=== PATIENT | female | born 1980 | race Caucasian/White ===

== ENCOUNTER 2016-11-13 05:55 | Inpatient (IN) | payer BC ==
[~2016-11-13] VITALS: Ht 160 cm; Wt 89.4 kg
[2016-11-13] VITALS (55 sets, daily range): BP systolic 108–144; BP diastolic 53–114; PULSE 65–127; RESP 0–18; TEMP 97.6–99.3
[~2016-11-13 05:55] MED LIST: ENOX40P SQ; LORT5TAB PO; Z.0.BCPILL PO
[2016-11-13] MEDS ORDERED: OXYTOCIN 30 UNITS/NS 500ML PREMIX IV SCH (06:45)
[2016-11-13] MEDS ORDERED: PREN29TA PO (06:56)
[2016-11-13] MEDS ORDERED: GLYB2.5T3 PO (06:56)
[2016-11-13] MEDS ORDERED: OXYTOCIN 30 UNITS 500ML PREMIX IV ONE (07:00)
[2016-11-13] MEDS ORDERED: CITRIC ACID-SODIUM CITRATE LIQ 30 ML UDC PO SCH (07:00)
[2016-11-13] MEDS ORDERED: LIDOCAINE HCL 1% 50 ML VIAL I-DERMAL PRN (07:00)
[2016-11-13] MEDS ORDERED: NS 1000 ML IV PRN (07:00)
[2016-11-13] MEDS ORDERED: ONDANSETRON HCL 4 MG/2 ML VIAL IV PRN (07:00)
[2016-11-13] MEDS ORDERED: LACTATED RINGER'S 1000 ML BOLUS IV PRN (07:00)
[2016-11-13] MEDS ORDERED: MINERAL OIL 10 ML VIAL TOPICAL PRN (07:00)
[2016-11-13] MEDS ORDERED: NS 500 ML BOLUS IV PRN (07:00)
[2016-11-13] MEDS ORDERED: LACTATED RINGER'S 1000 ML IV SCH (07:00)
[2016-11-13] MEDS ORDERED: LIDOCAINE HCL 1% 50 ML VIAL INFIL PRN (07:00)
[2016-11-13 07:18] LABS: AUTOMATED NEUTROPHIL # 6.6 TH/MM3 (1.8-7.7); BASOPHIL % 0.4 % (0.0-2.0); EOSINOPHIL # 0.1 TH/MM3 (0-0.4); EOSINOPHIL % 1.1 % (0.0-4.0); HEMATOCRIT 29.7 % (35.0-46.0); HEMO FLAGS DIFF FINAL; LYMPH % 16.2 % (9.0-44.0); LYMPHOCYTE # 1.5 TH/MM3 (1.0-4.8); MEAN CELL VOLUME 86.7 FL (80.0-100.0); MEAN CORPUSCULAR HEMOGLOBIN 30.3 PG (27.0-34.0); MEAN CORPUSCULAR HGB CONC 34.9 % (32.0-36.0); MONO % 9.2 % (0.0-8.0); NEUT % 73.1 % (16.0-70.0); PLATELET COUNT 297 TH/MM3 (150-450); RED BLOOD COUNT 3.42 MIL/MM3 (4.00-5.30); RED CELL DISTRIBUTION WIDTH 14.5 % (11.6-17.2)
[2016-11-13 07:43] LABS: BACTERIA, URINE RARE /hpf; BLOOD, URINE SMALL (NEG); CALCIUM OXALATE CRYSTALS,URINE FEW /hpf; GLUCOSE,URINE 300 mg/dL (NEG); HYALINE CAST, URINE 1 /lpf (RARE); KETONE, URINE NEG (NEG); MUCUS URINE FEW /lpf (OCC); NITRITE,URINE NEG (NEG); SQUAMOUS EPITHELIAL CELL URINE 1 /hpf (0-5); TRANSITIONAL EPI CELLS, URINE <1 /hpf; URINE COLOR YELLOW (YELLW/STRAW)
[2016-11-13 07:47] LABS: COMMENT (UR) CULT NOT INDICATED; CULTURE IF INDICATED CULT NOT INDICATED
--- NOTE | 2016-11-13 08:25 | PD.LABORPN ---
Subjective Subjective +FM, no LOF Objective Vital Signs Vital Signs Date Time Temp Pulse Resp B/P Pulse Ox O2 Delivery O2 Flow Rate FiO2 11/13/16 07:45 98.3 11/13/16 07:30 92 144/83 11/13/16 07:29 99.3 11/13/16 06:24 92 144/79 11/13/16 06:21 98.0 18 Objective Pelvic Exam: Cervix: [-] Dilatation: [-] 2 Effacement: [-] 50 Station: [-] -3 Presentation: [-] vtx Membranes: [intact or ruptured] arom attempted, unsuccessful, presentation high Uterine Contractions: [-] FHT's: Category: [-] 1 Baseline: [-] 160-170s but good BTBV Reactive: [-] Variability: [-] Decels: [-] no Assessment/Plan Problem List: (1) state, incidental (2) Gestational diabetes mellitus Assessment and Plan IUP at term GDM, well controlled start pit analgesia prn anticipate Meggan Holguin MD Nov 13, 2016 08:25
[2016-11-13] MEDS ORDERED: OXYTOCIN 30 UNITS-500ML PREMIX 500 ML IV SCH (08:30)
--- NOTE | 2016-11-13 10:03 | MH ---
cc: BARBI LEVY MD DATE OF ADMISSION: 11/13/2016 HISTORY OF PRESENT ILLNESS She is being admitted on 11/13/2016. She is [id number], 3, para 2, intrauterine at 39-3/7 weeks, history of precipitous delivery, gestational diabetes class A2, advanced maternal age, history of preeclampsia in 2002. care has been with [facility]. The patient has been controlled with glyburide 2.5 mg b.i.d. Group-B strep is negative. PAST OB HISTORY She had two vaginal deliveries. PAST [facility] HISTORY Unremarkable. Pap smear was normal in July 2015. PAST MEDICAL HISTORY She has had a kidney stone. PAST SURGICAL HISTORY She has had left leg and left knee surgery. SOCIAL HISTORY She denies toxic habits. MEDICATIONS 1. vitamins. 2. Glyburide 2.5 mg b.i.d. ALLERGIES She has no known drug allergies. PHYSICAL EXAMINATION VITAL SIGNS: Her vital signs are stable. Her blood pressure is 124/68. She is 200 pounds. HEAD, HEART, CHEST, LUNGS: Within normal limits. ABDOMEN: Soft, nontender, gravid. Vertex presentation. PELVIC: She is 2 cm dilated, 50% effaced, -1 station. ASSESSMENT AND PLAN She is [id number], 3, para 2, intrauterine at 39-3/7 weeks. History of precipitous delivery. Gestational diabetes controlled with glyburide. History of preeclampsia in 2002. Advanced maternal age. She has been counseled as to the risks, benefits and alternatives of artificial rupture of membranes followed by Pitocin augmentation. All of her questions have been answered. MD CARLOS Hill/DALE /10:41 AM /10:02 AM
[2016-11-13] MEDS ORDERED: fentaNYL 2MCG-BUPIV 0.125% INJ 100 ML ONE (13:27)
[2016-11-13] MEDS ORDERED: ePHEDrine/NS 25 MG/5 ML SYR IV PRN (14:45)
[2016-11-13] MEDS ORDERED: fentaNYL 2MCG-BUPIV 0.125% 100 ML EPIDURAL SCH (14:45)
[2016-11-13] MEDS ORDERED: NO SYSTEM NARCOTICS PRN (14:45)
[2016-11-13] MEDS ORDERED: DO NOT ADMINISTER ANTICOAGULANTS PRN (14:45)
--- NOTE | 2016-11-13 17:50 | PD.OB.DELI ---
Anesthesia: Epidural Episiotomy: Midline Vaginal Delivery: Vacuum Presentation: Occiput posterior Nuchal Cord: x1 : Female One Minute : 7 Five Minute : 9 Weight: 7-12 Placenta: Spontaneous delivery Laceration: 3 deg Repair: Chromic interrupted, Vicryl Meggan Aragon MD Nov 13, 2016 17:50
[2016-11-13] MEDS ORDERED: ZOLPIDEM TARTRATE 5 MG TAB PO PRN (18:00)
[2016-11-13] MEDS ORDERED: MEASLES, MUMPS, RUBELLA VACCINE 0.5 ML VIAL SQ ONE (18:00)
[2016-11-13] MEDS ORDERED: ALUMINUM/MAGNESIUM/SIMETH 30 ML CUP PO PRN (18:00)
[2016-11-13] MEDS ORDERED: DIPHTH/TETANUS/ACEL PERTUSSIS (BOOSTER) 0.5 ML VIAL/PFS IM ONE (18:00)
[2016-11-13] MEDS ORDERED: ACETAMINOPHEN 325 MG TAB PO PRN (18:00)
[2016-11-13] MEDS ORDERED: WITCH HAZEL 50%/GLYCERIN 12.5% 40 PAD JAR TOPICAL PRN (18:00)
[2016-11-13] MEDS ORDERED: BENZOCAINE 20% TOPICAL SPRAY 60 ML CAN TOPICAL PRN (18:00)
[2016-11-13] MEDS ORDERED: ONDANSETRON ODT 4 MG TAB PO PRN (18:00)
[2016-11-13] MEDS ORDERED: SODIUM CHLORIDE 0.9% FLUSH 10 ML FLUSH IV FLUSH PRN (18:00)
[2016-11-13] MEDS ORDERED: OXYTOCIN 30 UNITS-500ML PREMIX 500 ML IV ONE (18:00)
[2016-11-13] MEDS ORDERED: SODIUM CHLORIDE 0.9% FLUSH 10 ML FLUSH IV FLUSH SCH (21:00)
[2016-11-14] MEDS: IBUPROFEN 600 MG TAB PO PRN ×3 (00:09→13:18)
[2016-11-14 07:30] VITALS: BP 114/82; PULSE 86; RESP 16; TEMP 97.7
[2016-11-14] MEDS ORDERED: IBUP-232 PO (08:03)
[2016-11-14] MEDS ORDERED: SENN1TAB PO (08:03)
--- NOTE | 2016-11-14 08:03 | HHI.DCPOC ---
Discharge Care Plan Diagnosis: (1) (spontaneous vaginal delivery) Your Health Problems Are: Incisions/drains Vaginal delivery Report Symptoms to Your Doctor -Temperate above 100.5 degrees -Redness, of incision or excessive or foul smelling drainage -Unusual pain or calf pain -Increased vaginal bleeding -Painful or difficulty urinating -Feelings of extreme sadness or anxiety after 2 weeks Goals to Promote Your Health * To prevent worsening of your condition and complications * To maintain your health at the optimal level Directions to Meet Your Goals Take your medications as prescribed Follow your dietary instruction Follow activity as directed Ensure plenty of rest for recovery Drink fluids for hydration Keep your appointments as scheduled Take your immunizations and boosters as scheduled If your symptoms worsen call your PCP, if no PCP go to Urgent Care Center or Emergency Room Smoking is Dangerous to Your Health. Avoid second hand smoke Call the 24-hour crisis hotline for domestic abuse at Nilsa Brunner MD Nov 14, 2016 08:03
--- NOTE | 2016-11-14 08:05 | HHI.OB ---
Subjective Post Day: 1 Remarks vavd with 3 degree laceration Doing well pain garsia. is only taking ibuprofen Objective Vitals/I&O Vital Signs Date Time Temp Pulse Resp B/P Pulse Ox O2 Delivery O2 Flow Rate FiO2 11/13/16 20:43 98.2 77 16 142/81 11/13/16 19:47 99.2 11/13/16 19:47 77 16 142/81 11/13/16 18:31 84 109/58 11/13/16 18:25 18 11/13/16 18:25 98.5 11/13/16 18:15 94 127/75 11/13/16 18:06 0 11/13/16 18:00 99 135/82 11/13/16 17:01 109 11/13/16 16:46 91 11/13/16 16:31 94 135/114 11/13/16 16:16 83 138/86 11/13/16 16:01 65 124/72 11/13/16 16:00 98.2 11/13/16 15:46 69 126/63 11/13/16 15:31 70 120/62 11/13/16 15:16 76 131/74 11/13/16 15:01 73 132/77 11/13/16 14:46 66 137/67 11/13/16 14:31 76 135/72 11/13/16 14:22 76 122/68 11/13/16 14:19 78 125/75 11/13/16 14:16 76 126/57 11/13/16 14:15 77 11/13/16 14:12 71 133/76 11/13/16 14:09 127 130/91 11/13/16 14:06 72 132/62 11/13/16 14:05 73 11/13/16 14:03 74 121/56 11/13/16 14:00 85 11/13/16 14:00 77 126/68 11/13/16 14:00 97.6 18 11/13/16 13:57 82 125/64 11/13/16 13:55 84 129/68 11/13/16 13:51 80 139/66 11/13/16 13:50 89 11/13/16 13:48 86 143/83 11/13/16 13:42 82 141/56 11/13/16 13:40 79 11/13/16 13:35 90 11/13/16 13:30 80 128/78 11/13/16 13:00 83 114/65 11/13/16 12:31 90 115/64 11/13/16 12:01 96 127/56 11/13/16 11:31 91 125/60 11/13/16 11:15 98.0 18 11/13/16 11:00 88 119/60 11/13/16 10:42 77 118/70 11/13/16 10:28 83 11/13/16 10:27 120/53 11/13/16 10:00 78 118/78 11/13/16 10:00 83 120/53 11/13/16 09:26 88 124/60 11/13/16 08:30 77 108/54 Objective Remarks GENERAL: Well-nourished, well-developed patient. CARDIOVASCULAR: Regular rate and rhythm without murmurs, gallops, or rubs. RESPIRATORY: Breath sounds equal bilaterally. No accessory muscle use. ABDOMEN/GI: Abdomen soft, non-tender. Fundus: Firm, non-tender at umbilicus. GENITOURINARY: Light to moderate bleeding. EXTREMITIES: No cyanosis or edema, non-tender, without signs of DVT. Medications and IVs Current Medications Medications (Trade) Dose Ordered Sig/Gee Route Start Time Stop Time Status Last Admin (NS Flush) 2 ml BID IV FLUSH 11/13/16 21:00 (NS Flush) 2 ml UNSCH PRN IV FLUSH 11/13/16 18:00 (Tylenol) 650 mg Q4H PRN PO 11/13/16 18:00 (Motrin) 600 mg Q6H PRN PO 11/13/16 18:00 11/14/16 07:26 (Americaine 20% Top Spr) 1 spray Q4H PRN TOPICAL 11/13/16 18:00 11/13/16 19:06 (Tucks Pads) 1 applic QID PRN TOPICAL 11/13/16 18:00 11/13/16 19:06 (Riana-Colace) 2 tab Q12H PRN PO 11/13/16 18:00 (Ambien) 5 mg HS PRN PO 11/13/16 18:00 (Mag-Al Plus Susp Liq) 15 ml Q8H PRN PO 11/13/16 18:00 (Zofran Odt) 4 mg Q6H PRN PO 11/13/16 18:00 Assessment/Plan Problem List: (1) state, incidental (2) Gestational diabetes mellitus Assessment and Plan PPD 1 vavd with 3 degree laceration cont routine care, pericare. discussed avoid constipation, cont stool softners Discharge Planning routine ppd 2 Nilsa Brunner MD Nov 14, 2016 08:05
[2016-11-14] MEDS: DOCUSATE SODIUM 50 MG/SENNA 8.6 MG TAB PO PRN (13:17)
[2016-11-15] MEDS: IBUPROFEN 600 MG TAB PO PRN ×2 (02:28→10:16)
[2016-11-15] MEDS: DOCUSATE SODIUM 50 MG/SENNA 8.6 MG TAB PO PRN (02:28)
[2016-11-15 08:15] VITALS: BP 147/84; PULSE 62; RESP 16; TEMP 98.3
[2016-11-15] MEDS ORDERED: LABE100T2 PO (09:56)
--- NOTE | 2016-11-15 10:31 | HHI.OB ---
Subjective Post Day: 2 Remarks doing well, no park/vis changes Objective Vitals/I&O Vital Signs Date Time Temp Pulse Resp B/P Pulse Ox O2 Delivery O2 Flow Rate FiO2 11/15/16 08:15 98.3 62 16 147/84 Objective Remarks GENERAL: Well-nourished, well-developed patient. CARDIOVASCULAR: Regular rate and rhythm without murmurs, gallops, or rubs. RESPIRATORY: Breath sounds equal bilaterally. No accessory muscle use. ABDOMEN/GI: Abdomen soft, non-tender. Fundus: Firm, non-tender at umbilicus. GENITOURINARY: Light to moderate bleeding. EXTREMITIES: No cyanosis, tr edema, non-tender, without signs of DVT. Medications and IVs Current Medications Medications (Trade) Dose Ordered Sig/Gee Route Start Time Stop Time Status Last Admin (NS Flush) 2 ml BID IV FLUSH 11/13/16 21:00 (NS Flush) 2 ml UNSCH PRN IV FLUSH 11/13/16 18:00 (Tylenol) 650 mg Q4H PRN PO 11/13/16 18:00 (Motrin) 600 mg Q6H PRN PO 11/13/16 18:00 11/15/16 10:16 (Americaine 20% Top Spr) 1 spray Q4H PRN TOPICAL 11/13/16 18:00 11/13/16 19:06 (Tucks Pads) 1 applic QID PRN TOPICAL 11/13/16 18:00 11/13/16 19:06 (Riana-Colace) 2 tab Q12H PRN PO 11/13/16 18:00 11/15/16 02:28 (Ambien) 5 mg HS PRN PO 11/13/16 18:00 (Mag-Al Plus Susp Liq) 15 ml Q8H PRN PO 11/13/16 18:00 (Zofran Odt) 4 mg Q6H PRN PO 11/13/16 18:00 (Trandate) 100 mg Q12HR PO 11/15/16 11:00 11/15/16 10:19 Assessment/Plan Problem List: (1) state, incidental (2) Gestational diabetes mellitus Assessment and Plan PPD 2 vavd with 3 degree laceration cont routine care, pericare. discussed avoid constipation, cont stool softeners. She had BM today w/o issues Mild BP elevation- will give labetalol 100mg bid, first dose now. rx printed. pt to take bp at home and f/u in 2 wk in office. Discharge Planning routine ppd 2 Nilsa Brunner MD Nov 15, 2016 10:31
[2016-11-15] MEDS ORDERED: LABETALOL HCL 100 MG TAB PO SCH (11:00)
[2016-11-15 11:23] VITALS: BP 138/82; PULSE 77
== END 2016-11-15 11:42 | disposition home or self-care (01) | DRG 775 ==
LOC: H2EA 05:55 → H1EA 20:00
PROVIDERS: ADMIT Obstetrics & Gynecology; ATTEND Obstetrics & Gynecology
PROC: 10D07Z6 Extraction of Products of Conception, Vacuum, Via Natural or Artificial Opening (ICD-10-PCS; principal; 2016-11-13)
PROC: 0DQR0ZZ Repair Anal Sphincter, Open Approach (ICD-10-PCS; 2016-11-13)
PROC: 0W8NXZZ Division of Female Perineum, External Approach (ICD-10-PCS; 2016-11-13)
DX: O24.425 Gestational diabetes mellitus in childbirth, controlled by oral hypoglycemic drugs (principal); O70.20 Third degree perineal laceration during delivery, unspecified; Z37.0 Single live birth; Z3A.39 39 weeks gestation of pregnancy
CPT/HCPCS: 59025; 81001; 85025; 90715; J2590; J3010; J7120